=== PATIENT | male | born 1980 | race African-American/Black ===

== ENCOUNTER 2022-10-13 10:27 | Emergency (ER) | payer BC, MEDICAID ==
[~2022-10-13] VITALS: Ht 188 cm; Wt 90.7 kg
[2022-10-13 10:30] VITALS: BP 108/66; PULSE 67; RESP 16; TEMP 98.6; O2SAT 100
[2022-10-13 11:40] LABS: CLARITY URINE CLEAR (CLEAR); COLOR URINE YELLOW (YELLOW); GLUCOSE URINE NEGATIVE (NEGATIVE); KETONES URINE NEGATIVE (NEGATIVE); LEUKOCYTE ESTERASE URINE 1+ (NEGATIVE); NITRITE URINE NEGATIVE (NEGATIVE); OCCULT BLOOD URINE NEGATIVE (NEGATIVE); PROTEIN URINE NEGATIVE (NEGATIVE); SPECIFIC GRAVITY URINE 1.018 (1.005-1.030)
[2022-10-13 11:54] LABS: BACTERIA URINE 1+; RBC URINE 0-2 /hpf (0-2); SQUAMOUS EPITHELIAL CELL URINE 1+ /lpf (RARE/1+); WBC URINE 25-50 /hpf (0-2); YEAST URINE NONE SEEN
[2022-10-13] MEDS ORDERED: IBUP-2028 MT (12:14)
[2022-10-13] MEDS ORDERED: DOXY100C5 MT (12:14)
[2022-10-13] MEDS ORDERED: CEFTRIAXONE SODIUM 500 MG/VIAL IM ONE (12:15)
[2022-10-13] MEDS ORDERED: LIDOCAINE HCL/PF 1% 10 MG/ML 5ML VIAL INFIL ONE (12:15)
[2022-10-16 04:10] LABS: CHLAMYDIA TRACHOMATIS NAA Negative (Negative); NEISSERIA GONORRHOEAE NAA Negative (Negative)
== END 2022-10-13 13:01 | disposition home or self-care (01) ==
LOC: ER 10:27
DX: A54.9 Gonococcal infection, unspecified (principal)
CPT/HCPCS: 99283; 87491; 87591; 81003; 87086; J3490